=== PATIENT | female | born 1980 | race Asian ===

== ENCOUNTER 2019-07-02 17:28 | Emergency (ER) | payer BC, OTHER ==
[~2019-07-02] VITALS: Ht 152.4 cm; Wt 111.1 kg
[2019-07-02 17:56] VITALS: BP 116/84
[2019-07-02 18:18] LABS: Basophils # (auto) 0.1 uL; Basophils % (auto) 0.9 % (0.0-2.0); Eosinophils # (auto) 0.1 uL; Eosinophils % (auto) 0.8 % (0.0-7.0); Hematocrit 42.2 % (36.0-46.0); Hemoglobin 14.5 g/dL (12.2-16.2); Lymphocytes # (auto) 2.8 uL; Lymphocytes % (auto) 20.8 % (10.0-50.0); Mean Corpuscular Hgb Conc. 34.3 g/dL (32.0-36.0); Mean Corpuscular Volume 84.8 fL (80.0-100.0); Monocytes # (auto) 0.5 uL; Monocytes % (auto) 3.8 % (0.0-12.0); Neutrophils % (auto) 73.7 % (37.0-80.0); Platelet Count (auto) 354 10^3/uL (140-450); Red Blood Cells 4.98 10^6/uL (4.0-5.20); Red Cell Distribution Width 13.6 % (11.8-14.3); White Blood Cell 13.6 10^3/uL (4.4-10.8)
[2019-07-02 18:36] LABS: Alanine Aminotransferase 61 U/L (13-56); Albumin 4.1 g/dL (3.4-5.0); Anion Gap 12 (5-15); Aspartate Aminotransferase 44 U/L (15-37); BUN/Creatinine Ratio 13.6; Blood Urea Nitrogen 11 mg/dL (7-18); Calcium 9.3 mg/dL (8.5-10.1); Carbon Dioxide 21 mmol/L (21-32); Chloride 108 mmol/L (98-107); GFR African American 101 mL/min; GFR Non-African American 83 mL/min; Glucose 148 mg/dL (74-106); Potassium 3.4 mmol/L (3.5-5.1); Sodium 141 mmol/L (136-145)
[2019-07-02 18:41] LABS: Alkaline Phosphatase 100 U/L (45-117); Total Protein 8.2 g/dL (6.4-8.2)
[2019-07-02] MEDS ORDERED: LORazepam 0.5 MG TAB PO ONE (20:45)
[2019-07-02] MEDS ORDERED: cefTRIAXone SOD 1,000 MG VL IM ONE (20:45)
[2019-07-02] MEDS ORDERED: methylPREDNISolone SOD SUCC 125 MG/2 ML VL IM ONE (20:45)
== END 2019-07-02 21:25 | disposition home or self-care (01) ==
LOC: ER 17:46
DX: F41.1 Generalized anxiety disorder (principal)
CPT/HCPCS: 36415; 80053; 84484; 85025; 93005; 96372; 99284; J0696; J2930